=== PATIENT | female | born 1950 | race Caucasian/White ===

== ENCOUNTER 2020-08-04 09:45 | Outpatient (REF) | payer MEDICARE, SELFPAY ==
[2020-08-04 14:36] LABS: ALT 26 U/L (14-59); AST 17 U/L (15-37); Albumin 3.5 g/dL (3.4-5.0); Alkaline Phosphatase 84 U/L (46-116); Anion Gap 6.2 mmol/L (3-11); BUN 26 mg/dL (7-18); Bilirubin, Total 0.3 mg/dL (0.2-1.0); CO2 28.8 mmol/L (21.0-32.0); Calcium 9.3 mg/dL (8.5-10.1); Calculated LDL 129 mg/dL (<100); Chloride 108 mmol/L (98-107); Cholesterol 211 mg/dL (<200); Estimated GFR 54.97 (mL/min/1.73m2); Glucose 98 mg/dL (74-106); HDL Cholesterol 70 mg/dL (40-60); Potassium 5.1 mmol/L (3.5-5.1); Sodium 143 mmol/L (136-145); Total Protein 6.5 g/dL (6.4-8.2); Triglyceride 64 mg/dL (<150)
== END 2020-08-04 09:46 | disposition home or self-care (01) ==
LOC: NCHCN 09:45
PROVIDERS: PCP Family Medicine; Visit Provider Family Medicine
DX: E78.5 Hyperlipidemia, unspecified (principal); R73.9 Hyperglycemia, unspecified
CPT/HCPCS: 80053; 80061

== ENCOUNTER 2021-07-29 14:45 | Outpatient (REF) | payer MEDICARE, SELFPAY ==
[2021-07-29 21:00] LABS: HCT 44.7 % (36.0-46.0); HGB 14.3 g/dL (11.2-15.7); MCH 28.4 pg (27.0-33.0); MCV 88.7 fL (80-95); MPV 11.2 fL (8.0-11.0); Platelet Count 228 10^3/uL (130-400); RBC 5.04 10^6/uL (3.93-5.22); RDW 12.5 % (11.7-14.6); WBC 5.77 10^3/uL (4.4-10.8)
[2021-07-29 21:18] LABS: ALT 28 U/L (14-59); AST 17 U/L (15-37); Albumin 3.8 g/dL (3.4-5.0); Alkaline Phosphatase 72 U/L (46-116); BUN 22 mg/dL (7-18); Bilirubin, Total 0.6 mg/dL (0.2-1.0); CREATININE 1.1 mg/dL (0.55-1.02); Calcium 9.3 mg/dL (8.5-10.1); Calculated LDL 134 mg/dL (<100); Chloride 104 mmol/L (98-107); Cholesterol 216 mg/dL (<200); Glucose 90 mg/dL (74-106); HDL Cholesterol 73 mg/dL (40-60); Potassium 5.3 mmol/L (3.5-5.1); Sodium 142 mmol/L (136-145); Total Protein 6.7 g/dL (6.4-8.2); Triglyceride 48 mg/dL (<150)
[2021-07-30 05:14] LABS: Vitamin D 25 Total 55.8 ng/mL (30-100)
== END 2021-07-29 14:46 | disposition home or self-care (01) ==
LOC: NCHCN 14:45
PROVIDERS: PCP Family Medicine; Visit Provider Family Medicine
DX: E78.5 Hyperlipidemia, unspecified (principal); R73.9 Hyperglycemia, unspecified; R10.9 Unspecified abdominal pain; Z00.00 Encounter for general adult medical examination without abnormal findings; E55.9 Vitamin D deficiency, unspecified
CPT/HCPCS: 80053; 80061; 82306; 85027

== ENCOUNTER 2021-12-09 17:16 | Outpatient (REF) | payer MEDICARE, SELFPAY ==
[2021-12-09 15:16] LABS: ALT 32 U/L (14-59); AST 17 U/L (15-37); Albumin 3.7 g/dL (3.4-5.0); Alkaline Phosphatase 77 U/L (46-116); Anion Gap 8.3 mmol/L (3-11); BUN 20 mg/dL (7-18); Bilirubin, Total 0.6 mg/dL (0.2-1.0); CO2 27.7 mmol/L (21.0-32.0); CREATININE 1.1 mg/dL (0.55-1.02); Calcium 8.9 mg/dL (8.5-10.1); Chloride 109 mmol/L (98-107); Estimated GFR 48.96 (mL/min/1.73m2); Glucose 98 mg/dL (74-106); Sodium 145 mmol/L (136-145); TSH 1.68 uIU/mL (0.36-3.74); Total Protein 6.7 g/dL (6.4-8.2); Vitamin B12 598 pg/mL (193-986)
[2021-12-09 15:39] LABS: FREE T4 0.97 ng/dL (0.76-1.46)
[2021-12-09 22:38] LABS: CRP, High Sensitivity 1.48 mg/L (See Note)
[2021-12-09 23:08] LABS: T3, Total 146 ng/dL (97-169)
[2021-12-10 11:08] LABS: Lyme Ab w Rflx to Lyme Confirm Negative (Negative)
== END 2021-12-09 17:17 | disposition home or self-care (01) ==
LOC: NCHCN 17:16
PROVIDERS: PCP Family Medicine; Visit Provider Family Medicine
DX: F41.8 Other specified anxiety disorders (principal); R73.9 Hyperglycemia, unspecified; E78.5 Hyperlipidemia, unspecified; Z00.00 Encounter for general adult medical examination without abnormal findings; Z86.19 Personal history of other infectious and parasitic diseases
CPT/HCPCS: 80053; 86141; 82607; 84439; 84443; 84480; 86618

== ENCOUNTER 2024-11-05 15:05 | Outpatient (REF) | payer MEDICARE, SELFPAY ==
[2024-11-05 16:00] LABS: HCT 43.7 % (36.0-46.0); HGB 14.3 g/dL (11.2-15.7); MCH 28.7 pg (27.0-33.0); MCHC 32.7 % (32.0-36.0); MCV 88 fL (80-95); MPV 11.3 fL (8.0-11.0); Platelet Count 204 10^3/uL (130-400); RBC 4.98 10^6/uL (3.93-5.22); RDW-SD 41.7 fL; WBC 5.15 10^3/uL (4.4-10.8)
[2024-11-05 16:30] LABS: ALT 30 U/L (14-59); AST 23 U/L (15-37); Albumin 3.6 g/dL (3.4-5.0); Alkaline Phosphatase 77 U/L (46-116); Anion Gap 4.3 mmol/L (3-11); BUN 19 mg/dL (7-18); Bilirubin, Total 0.6 mg/dL (0.2-1.0); CO2 28.7 mmol/L (21.0-32.0); CREATININE 1.1 mg/dL (0.55-1.02); Calcium 9.7 mg/dL (8.5-10.1); Chloride 107 mmol/L (98-107); Estimated GFR 53.06 (mL/min/1.73m2); Glucose 113 mg/dL (74-106); Potassium 4.4 mmol/L (3.5-5.1); Sodium 140 mmol/L (136-145); Total Protein 6.4 g/dL (6.4-8.2)
== END 2024-11-05 15:06 | disposition home or self-care (01) ==
LOC: NCHCN 15:05
PROVIDERS: PCP Family Medicine; Visit Provider Family Medicine
DX: R10.9 Unspecified abdominal pain (principal)
CPT/HCPCS: 80053; 85027

== ENCOUNTER 2024-12-20 01:11 | Outpatient (CLI) | payer MEDICARE, SELFPAY ==
--- NOTE | 2024-12-20 17:01 | TELEFU_ITS ---
Date of service: 12/20/24 Time of Service: 15:00 Nutrition Note NOTE: Jennifer referred to nutrition visit for weight management guidance. She is frustrated, not seeing any weight changes with what she feels is a healthy diet and just started working to exercise more over the last 4-6 weeks. I encouraged exercise on top of a baseline of activity but emphasized that weight loss starts in the kitchen and exercise will help, but easy to overestimate how much energy is burned and overcompensate with eating as exercise will increase appetite naturally as well. Encouraged strength training as a priority to help baseline metabolic rate and insulin sensitivity. Also suggested that she consider the type of weight loss she is focusing on - should not be just weight/mass, but should be body recomposition by preserving/gaining muscle while losing fat - recommended a bioimpedance scale as better manpower development manager of how weight is shifting. She typically eats 3 meals per day. related breakfast lately is a yogurt, few strawberries and ~1/3 cup of granola. Dinner can often be later than would be recommended for her weight loss goals - will eat at 8pm often. will have a snack after dinner most nights as well. Reviewed that she would benefit from getting more protein earlier in the day at breakfast and should try to eat dinner earlier and avoid snacking in the evening. Also suggested she watch out for added sugar in granola as this can be deceiving - suggested tracking added sugar and limiging to 15g per day. She needs to work on water intake - suggested goal of 60oz per day (3 20oz bottles). She has hiatal hernia and reflux can be a concern. group home use of PPI. Relates hard cheeses give her stomach discomfort. She also is gluten intolerant - states she was tested for celiac but was ruled out. She c/o leg cramping at night and had found that eating chocolate or drinking etoh gives immediate cramping. She states she takes a MVI and 100mg magnesium/600mg calcium. I suggested additional magnesium before bed - Suggested Calm brand magnesium powder. Also suggested she as provider about B12 labs (no labs in referral paperwork) and consider B-complex supplement for insurance as both PPI use and generally aging will demand at least B12 supplement most likely. Reviewed suggested menus via menu planning resource and shared the following goals with Jennifer to use in generating menus to follow to ensure success: 1500kcals, 50g total fat (15g of < from SFA), 150g total carbs (with at least 25g fiber and no more than 15 g added sugar), and 112g protein. Above and beyond suggested menus, I suggested eating at least 30g protein within an hour of waking, and stop eating earlier in the evening (6pm suggested as last meal and fast until breakfast). Time Spent in Nutritional Counseling and Treatment: 25 min
== END 2024-12-20 01:12 | disposition home or self-care (01) ==
LOC: DS 01:11
PROVIDERS: PCP Family Medicine; Visit Provider Dietitian, Registered
DX: E66.9 Obesity, unspecified (principal)
CPT/HCPCS: 00123; 97802